=== PATIENT | female | born 1990 | race Caucasian/White ===

== ENCOUNTER 2017-03-27 04:12 | Inpatient (IN) | END 2017-04-17 10:42 | disposition home health service (06) | DRG 597 ==

== ENCOUNTER 2017-05-19 11:21 | Inpatient (IN) | END 2017-06-04 23:27 | disposition home health service (06) | DRG 829 ==

== ENCOUNTER 2017-07-02 10:50 | Inpatient (IN) | END 2017-08-04 18:09 | disposition short-term general hospital (02) | DRG 829 ==

== ENCOUNTER → 2018-05-15 | Outpatient (CLI) | payer OTHER ==
[~2018-05-15] MED LIST: BEN25 PO; DOCU-216 PO; HYDR2TAB36 PO; MULTI PO; ONDA4TAB95 PO
== END | disposition home or self-care (01) ==
LOC: RAD 11:23
PROVIDERS: ATTEND Internal Medicine Hematology & Oncology
DX: Z45.2 Encounter for adjustment and management of vascular access device (principal); C49.9 Malignant neoplasm of connective and soft tissue, unspecified
CPT/HCPCS: 36569; 71045; 76937